=== PATIENT | male | born 1995 | race Caucasian/White ===

== ENCOUNTER 2019-08-02 00:01 | Emergency (ER) | payer SELFPAY ==
--- NOTE | 2019-08-02 00:25 | EDM.PDOC ---
ED HPI GENERAL MEDICAL PROBLEM - General Chief Complaint: Skin Complaint Stated Complaint: BITE ON LEG Time Seen by Provider: 08/02/19 00:02 Source of Information: Reports: Patient History Limitations: Reports: No Limitations - History of Present Illness INITIAL COMMENTS - FREE TEXT/NARRATIVE: 23-year-old male with no past medical history presenting with a suspected insect bite. Patient states that 3 days ago, he felt a sharp pain to the medial aspect of his left lower leg. He then noticed a erythematous area that has spread over the past 72 hours, concerning for an insect bite. No self treatment prior to arrival. He denies any fever, chills, vomiting, or any other complaints. - Related Data Allergies Allergy/AdvReac Type Severity Reaction Status Date / Time No Known Allergies Allergy Verified 08/02/19 00:17 Home Meds: Home Meds . [No Known Home Meds] 02/15/18 [History] Past Medical History - Past Health History Medical/Surgical History: Denies Medical/Surgical History HEENT History: Reports: Impaired Vision Other HEENT History: wears glasses - Past Surgical History HEENT Surgical History: Reports: Other (See Below) Other HEENT Surgeries/Procedures: ear surgery Social & Family History - Family History Family Medical History: Noncontributory ED ROS GENERAL - Review of Systems Review Of Systems: See Below Constitutional: Denies: Fever, Chills GI/Abdominal: Denies: Nausea, Vomiting Skin: Reports: Wound ED EXAM, SKIN/RASH Exam: See Below Text/Narrative:: Vital signs reviewed. Nursing notes reviewed. Constitutional: Awake, alert, non-distressed. Head: Normocephalic, atraumatic. Pulmonary: normal work of breathing, no accessory muscle use. Musculoskeletal: No deformities. Integumentary: Appropriate color for ethnicity, warm, dry, no pallor or jaundice , no rash. On the medial aspect of the left lower leg, there is an approximately 15 cm wide round erythematous area with central violaceous discoloration, concerning for an insect bite. There is no associated streaking , induration, fluctuance, or drainage. Neurologic: Alert, answering questions appropriately, normal speech, no facial droop, moving all extremities well. Psychiatric: Appropriate mood and affect, normal thought process. Course - Vital Signs Text/Narrative:: Patient hemodynamically stable, afebrile, well-appearing, looks nontoxic. Differential diagnosis includes but is not limited to: Spider bite, tick bite, cellulitis, abscess, etc. No fever or systemic infectious symptoms. No evidence of abscess. No fluctuance or streaking to suggest lymphangitis, no signs of sepsis. Inspection of the area is concerning for possible brown recluse bite, but these spiders are not [place]. No evidence of central ulceration at this moment, no evidence of superinfection. Plan to prescribe a short course of p.o. Keflex as prophylactic antibiotic against potential infection. Patient is stable to discharge home with outpatient primary care follow-up. Strict emergency department return precautions were provided, patient indicated understanding. All questions were answered prior to departure. Discharged in good condition. Last Recorded V/S: Last Vital Signs Temp 36.0 C L 08/02/19 00:13 Pulse 77 08/02/19 00:13 Resp 16 08/02/19 00:13 BP 141/80 H 08/02/19 00:13 Pulse Ox 97 08/02/19 00:13 Departure - Departure Time of Disposition: :20 Disposition: Home, Self-Care 01 Condition: Good Clinical Impression: Insect bite Qualifiers: Encounter type: initial encounter Site of insect bite: lower leg Laterality: left Qualified Code(s): S80.862A - Insect bite (nonvenomous), left lower leg, initial encounter - Discharge Information *PRESCRIPTION DRUG MONITORING PROGRAM REVIEWED*: Not Applicable *COPY OF PRESCRIPTION DRUG MONITORING REPORT IN PATIENT OMAYRA: Not Applicable Instructions: Insect Bite, Adult Referrals: [facility] - Family Practice [Provider Group] - 1 Week (As needed for follow-up care.) Forms: ED Department Discharge Additional Instructions: I recommend [id number] acetaminophen and ibuprofen as directed on the package for pain. You can use [id number] Benadryl cream for any itching. Please document your wound daily with a photograph for comparison. I recommend following up with either a primary medical clinic/family medicine clinic, or a general surgery clinic if the wound becomes much worse. Please return to the emergency department if your symptoms worsen or if you have any new concerns. [facility] - Primary Care [address] [place] [id number] [place] [address] [facility] Special[facility] - General Surgery Professional Building [address] [place] [address], [address] [place] [address] The following information is given to patients seen in the emergency department who are being discharged to home. This information is to outline your options for follow-up care. We provide all patients seen in our emergency department with a follow-up referral. The need for follow-up, as well as the timing and circumstances, are variable depending upon the specifics of your emergency department visit. If you don't have a primary care physician on staff, we will provide you with a referral. We always advise you to contact your personal physician following an emergency department visit to inform them of the circumstance of the visit and for follow-up with them and/or the need for any referrals to a consulting specialist. The emergency department will also refer you to a specialist when appropriate. This referral assures that you have the opportunity for follow-up care with a specialist. All of these measure are taken in an effort to provide you with optimal care, which includes your follow-up. Under all circumstances we always encourage you to contact your private physician who remains a resource for coordinating your care. When calling for follow-up care, please make the office aware that this follow-up is from your recent emergency room visit. If for any reason you are refused follow-up, please contact the [facility] Emergency Department at and asked to speak to the emergency department charge nurse. Sepsis Event Note - Evaluation Sepsis Screening Result: No Definite Risk - Focused Exam Vital Signs: Vital Signs Temp Pulse Resp BP Pulse Ox 08/02/19 00:13 36.0 C L 77 16 141/80 H 97 Date Exam was Performed: 08/02/19 Time Exam was Performed: 00:25
== END 2019-08-02 00:33 | disposition home or self-care (01) ==
LOC: MW.ED 00:01
DX: S80.862A Insect bite (nonvenomous), left lower leg, initial encounter (principal); W57.XXXA Bitten or stung by nonvenomous insect and other nonvenomous arthropods, initial encounter
CPT/HCPCS: 99282

== ENCOUNTER 2022-11-22 09:22 | Emergency (ER) | payer SELFPAY ==
[2022-11-22] MEDS ORDERED: Lidocaine 5% Oint 35.44 GM Tube TOP STA (10:49)
[2022-11-22] MEDS ORDERED: Acetaminophen 500 MG Tab PO STA (10:50)
== END 2022-11-22 13:12 | disposition home or self-care (01) ==
LOC: MW.ED 09:22
DX: S90.32XA Contusion of left foot, initial encounter (principal); X50.1XXA Overexertion from prolonged static or awkward postures, initial encounter; Y92.89 Other specified places as the place of occurrence of the external cause
CPT/HCPCS: 73630; 99283; A9270